=== PATIENT | male | born 1965 | race Caucasian/White ===

== ENCOUNTER → 2017-01-30 | Outpatient (CLI) | payer MEDICARE, BC ==
[2015-02-01 22:28] VITALS: BP 108/66
[~2017-01-30] MED LIST: ALEN35TA6 PO; ALEN70TA3 PO; ALEN70TA5 PO; CALC-9 PO; CALC1POW MC; CETI10TA16 PO; FLUT16SP NS; FOLI1TAB16 PO; HYDR-2762 PO; IMMU20VI IV; IMMU50VI3 IV; IOHEXOL 300 MG/ML 50 ML VIAL. ONE; METH25VI27 IJ; METO-239 PO; MILN12.5 PO; MULT-246 PO; MULT1TAB97 PO; MYCO250C44 PO; MYCO500T PO; OMEP40CA5 PO; OXYC-328 PO; OXYC1TAB7 PO; OXYC20TA34 PO; OXYC30TA64 PO; OXYC40TA21 PO; PRED-220 PO; PRED20TA PO; PREG75CA PO; TRAM50TA PO; WARF-78 PO; WARF5VIA IV; ZOLP10TA4 PO
--- NOTE | 2017-01-30 11:29 | RAD ---
Fluoroscopic evaluation of right internal jugular port 01/30/2017 Indication: Port will not aspirate Discussion: The right internal jugular port was evaluated fluoroscopically. The port, and catheter are intact. Catheter tip is at the expected position within the cavoatrial junction. The right chest was prepped and draped using maximum sterile barrier technique. The port was accessed. The port would not aspirate but easily flushed. Contrast was administered to the port catheter demonstrating presence of fibrin sheath of the port catheter tip. No other abnormalities are seen. The port was flushed with saline packed with heparin. No immediate complications were identified. Fluoro time 0.8 minutes Dose 10 Gycm2 Impression: 5 [place] sheath around the tip of the port catheter restricting aspiration.
== END | disposition home or self-care (01) ==
LOC: INTRAD 07:44
PROVIDERS: ATTEND Family Medicine
DX: T82.594A Other mechanical complication of infusion catheter, initial encounter (principal); Y84.8 Other medical procedures as the cause of abnormal reaction of the patient, or of later complication, without mention of misadventure at the time of the procedure; Y92.89 Other specified places as the place of occurrence of the external cause; Z86.718 Personal history of other venous thrombosis and embolism; K21.9 Gastro-esophageal reflux disease without esophagitis
CPT/HCPCS: 36598

== ENCOUNTER → 2017-02-04 | Outpatient (CLI) | payer MEDICARE, BC ==
[~2017-02-04] MED LIST changes: -IOHEXOL 300 MG/ML 50 ML VIAL. ONE; +LIDOCAINE 1%/EPI 1:100,000 20 ML VIAL. IJ ONE; +LIDOCAINE 1%/EPI 1:100,000 20 ML VIAL. ONE; +MIDAZOLAM HCL/PF 5 MG/5 ML VIAL. IV ONE; +MIDAZOLAM HCL/PF 5 MG/5 ML VIAL. ONE; +fentaNYL PF VIAL 250 MCG/5 ML VIAL IV ONE; +fentaNYL PF VIAL 250 MCG/5 ML VIAL ONE
[2017-02-04 07:29] LABS: BASO # 0.1 x10^3/uL (0.0-0.2); BASO % 1 % (0-3); EOS % 1 % (0-3); HEMATOCRIT 39.6 % (39.0-53.0); LYMPH # 0.6 x10^3/uL (1.0-4.8); LYMPH % 8 % (24-48); MEAN CORPUSCULAR HEMOGLOBIN 33 pg (25-35); MEAN CORPUSCULAR HGB CONC 33 g/dL (31-37); MEAN CORPUSCULAR VOLUME 100 fL (79-100); MONO % 4 % (0-9); NEUT % 86 % (31-73); PLATELET COUNT 175 x10^3/uL (140-400); RED BLOOD COUNT 3.97 x10^6/uL (4.30-5.70); RED CELL DISTRIBUTION WIDTH 16.7 % (11.5-14.5)
[2017-02-04 07:48] LABS: PROTHROMBIN TIME PATIENT 12.9 SEC (11.7-14.0)
[2017-02-04 07:52] LABS: CALCIUM 8.4 mg/dL (8.5-10.1); CREATININE 0.7 mg/dL (0.7-1.3); GFR 118.4; POTASSIUM 4.5 mmol/L (3.5-5.1)
[2017-02-04 09:20] VITALS: BP 117/71
[2017-02-04 09:31] LABS: % BASOS 1 % (0-3); % EOS 4 % (0-5)
[2017-02-04 09:33] VITALS: BP 116/77
[2017-02-04 09:33] LABS: ANISOCYTOSIS SLIGHT; PLT ESTIMATE ADEQUATE (ADEQUATE); TOXIC GRANULATION SLIGHT
[2017-02-04 09:46] VITALS: BP 125/78
[2017-02-04 10:00] VITALS: BP 107/72
[2017-02-04 10:15] VITALS: BP 92/63
--- NOTE | 2017-02-04 13:12 | RAD ---
02/04/2017 1. Removal of right internal jugular PowerPort 2. Placement of a new right internal jugular PowerPort Indication: Malfunctioning right internal jugular PowerPort Discussion: Sedation: Conscious sedation was administered for 30 minutes. The patient was monitored by a qualified independent observer throughout the time of sedation. Please refer to the medical record for exact doses of medications utilized to achieve moderate sedation. Fluoroscopy time: 0.9 utes Dose area product: 2 ycm2 The procedure was explained in its entirety to the patient or the patients designated pharmaceutical representative by a member of the treatment team, including a discussion of the risks, benefits and commonly accepted alternatives to the procedure, as well as the expected consequences of no therapy whatsoever. Discussion of the risks included, but was not limited to, those that are most frequent and those that are rare but possibly severe or life-threatening, as well as the possibility of unforeseen complications. All elements of maximal sterile barrier technique including the use of a cap, mask, sterile gown, sterile gloves, large sterile sheet, appropriate hand hygiene, and 2% chlorhexidine for cutaneous antisepsis (or acceptable alternative antiseptic per current guidelines) were followed for this procedure. Following informed consent, and a timeout procedure, the patient was prepped and draped in the usual sterile fashion. 1% lidocaine without epinephrine was administered overlying the pre-existing port reservoir. A small incision was made overlying the reservoir and the reservoir and catheter were removed intact. No overt evidence of infection was seen. Ultrasound interrogation of the right neck revealed patency and compressibility of the right internal jugular vein. A 21-gauge micropuncture was then used to gain access to this vein under ultrasound guidance. A hard copy ultrasound image was recorded. The needle was exchanged over a wire for a sheath. A catheter was tunneled from prior port pocket site in the right chest to the venotomy site in the right neck. A guidewire was advanced centrally followed by peel-away sheath. Through peel-away sheath the port catheter was advanced such that its tip was in the proximal right atrium with the patient supine. The catheter was trimmed to length and connected to the port reservoir. The port was found to flush and aspirate normally. The wound was closed in layers using 4-0 Vicryl suture. Sterile dressings were applied. Impression: Successful ultrasound and fluoroscopically guided removal of the pre-existing port, and placement of a new right internal jugular PowerPort
== END | disposition home or self-care (01) ==
LOC: INTRAD 06:53
PROVIDERS: ATTEND Family Medicine
DX: T85.618A Breakdown (mechanical) of other specified internal prosthetic devices, implants and grafts, initial encounter (principal); Y84.8 Other medical procedures as the cause of abnormal reaction of the patient, or of later complication, without mention of misadventure at the time of the procedure; Y92.89 Other specified places as the place of occurrence of the external cause; K21.9 Gastro-esophageal reflux disease without esophagitis; Z98.890 Other specified postprocedural states; Z87.39 Personal history of other diseases of the musculoskeletal system and connective tissue
CPT/HCPCS: 36415; 36561; 76937; 77001; 80048; 85007; 85610; 99152; C1751; C1892; J0690; J1644; J2250; J3010; J3490; 85025; 99153

== ENCOUNTER → 2017-04-07 | Outpatient (CLI) | payer MEDICARE, BC | END | disposition home or self-care (01) | LOC: PNCL 09:18 | DX: M54.5 Low back pain (principal); M79.662 Pain in left lower leg; M79.661 Pain in right lower leg; G47.30 Sleep apnea, unspecified; Z86.711 Personal history of pulmonary embolism; Z86.718 Personal history of other venous thrombosis and embolism; Z79.01 Long term (current) use of anticoagulants | CPT/HCPCS: G0463 ==

== ENCOUNTER 2017-09-18 10:50 | Inpatient (IN) | payer MEDICARE, BC ==
[2017-09-18 11:55] LABS: BASO # 0.1 x10^3/uL (0.0-0.2); BASO % 1 % (0-3); EOS % 0 % (0-3); HEMATOCRIT 43.4 % (39.0-53.0); HEMOGLOBIN 14.8 g/dL (13.0-17.5); LYMPH # 1.3 x10^3/uL (1.0-4.8); LYMPH % 9 % (24-48); MEAN CORPUSCULAR HEMOGLOBIN 33 pg (25-35); MEAN CORPUSCULAR HGB CONC 34 g/dL (31-37); MEAN CORPUSCULAR VOLUME 97 fL (79-100); MONO # 0.9 x10^3/uL (0.0-1.1); MONO % 7 % (0-9); NEUT # 11.8 x10^3uL (1.8-7.7); NEUT % 83 % (31-73); PLATELET COUNT 156 x10^3/uL (140-400); RED BLOOD COUNT 4.46 x10^6/uL (4.30-5.70); WHITE BLOOD COUNT 14.1 x10^3/uL (4.0-11.0)
[2017-09-18 11:59] LABS: ADD MAN DIFF? YES
[2017-09-18 12:05] LABS: ANION GAP 6 (6-14); BLOOD UREA NITROGEN 17 mg/dL (8-26); CALCIUM 8.3 mg/dL (8.5-10.1); CARBON DIOXIDE 30 mmol/L (21-32); CHLORIDE 102 mmol/L (98-107); CREATININE 0.4 mg/dL (0.7-1.3); GLUCOSE 135 mg/dL (70-99); POTASSIUM 3.8 mmol/L (3.5-5.1); SODIUM 138 mmol/L (136-145)
[2017-09-18 12:21] LABS: ALBUMIN 2.7 g/dL (3.4-5.0); ALK PHOS 81 U/L (46-116); ALT (SGPT) 221 U/L (16-63); AST (SGOT) 143 U/L (15-37); CREATINE KINASE 1653 U/L (39-308); DIRECT BILIRUBIN 0.1 mg/dL (0.0-0.2); TOTAL BILIRUBIN 0.4 mg/dL (0.2-1.0); TOTAL PROTEIN 6.2 g/dL (6.4-8.2)
[2017-09-18 12:37] LABS: % BANDS 2 % (0-9); % LYMPHS 10 % (24-48); % METAS 1 % (0-0); % MONOS 5 % (0-10); % MYELOS 1 % (0-0); % SEGS 81 % (35-66); ANISOCYTOSIS SLIGHT; PLT ESTIMATE ADEQUATE (ADEQUATE)
[2017-09-18 13:09] LABS: BILIRUBIN,URINE NEGATIVE (NEG); CLARITY,URINE CLEAR; COLOR,URINE YELLOW; GLUCOSE,URINE NEGATIVE (NEG); NITRITE,URINE NEGATIVE (NEG); PROTEIN,URINE NEGATIVE (NEG-TRACE)
[2017-09-18 13:23] LABS: BACTERIA,URINE 0 /HPF (0-FEW); RBC,URINE 0 /HPF (0-2); WBC,URINE 0 /HPF (0-4)
[2017-09-18] MEDS ORDERED: ALBUTEROL SULFATE 2.5 MG/3 ML NEBU. NEB (15:00)
[2017-09-18] MEDS ORDERED: guaiFENesin DM 200MG/20MG 10 ML SYRUP PO (15:00)
[2017-09-18] MEDS ORDERED: PIP/TAZO PER PHARMACY MC (15:00)
[2017-09-18] MEDS ORDERED: MORPHINE SULFATE 4 MG/ML DISP.SYRIN. IV (15:00)
[2017-09-18] MEDS ORDERED: ONDANSETRON PF 4 MG/2 ML VIAL. IV (15:00)
[2017-09-18] MEDS ORDERED: MORPHINE SULFATE 2 MG/ML DISP.SYRIN. IV (15:00)
[2017-09-18] MEDS ORDERED: ACETAMINOPHEN 325 MG TABLET. PO (15:00)
[2017-09-18] MEDS: oxyCODONE/APAP 10/325 1 TAB TABLET PO ×2 (16:12→20:31)
[2017-09-18] MEDS ORDERED: PROMETHAZINE 12.5 MG TABLET. PO (17:00)
[2017-09-18] MEDS ORDERED: LACTULOSE 20 GM/30 ML SOLUTION. PO (17:00)
[2017-09-18] MEDS: IV NORMAL SALINE 1000ML BAG 1,000 ML IV (17:53)
[2017-09-18] MEDS: PIPERACILLIN/TAZOBACTAM 3.375 GM in IV NORMAL SALINE 50ML 50 ML IV (17:53)
[2017-09-18] MEDS: buPROPion XL 150 MG TAB.ER.24H. PO (20:35)
[2017-09-18] MEDS ORDERED: oxyCODONE ER 40 MG TAB.ER.12H PO (21:00)
[2017-09-18] MEDS ORDERED: ENOXAPARIN 40 MG/0.4 ML SYRINGE. SQ (21:00)
[2017-09-18] MEDS ORDERED: predniSONE 5 MG TABLET PO (21:00)
[2017-09-18] MEDS: LACTOBACILLUS RHAMNOSUS GG 1 CAPSULE. PO (21:04)
[2017-09-18] MEDS: predniSONE 20 MG TABLET PO (21:05)
[2017-09-18] MEDS: CALCIUM CARB/VIT D3 500/200 TABLET. PO (21:05)
[2017-09-18] MEDS: oxyCODONE ER 40 MG TAB.ER.12H PO (21:05)
[2017-09-18] MEDS: PANTOPRAZOLE 40 MG TABLET.DR. PO (21:05)
[2017-09-18] MEDS: GABAPENTIN 100 MG CAPSULE. PO (21:06)
[2017-09-18] MEDS: CETIRIZINE HCL 10 MG TABLET. PO (21:06)
[2017-09-18] MEDS: DABIGATRAN ETEXILATE 150 MG CAPSULE. PO (21:06)
[2017-09-18] MEDS: METOPROLOL SUCC 24HR ER 25 MG TAB.ER.24H. PO (21:06)
[2017-09-18] MEDS: FOLIC ACID 1 MG TABLET. PO (21:06)
[2017-09-18] MEDS: ZOLPIDEM 5 MG TABLET. PO (22:52)
[2017-09-19] MEDS: IV NORMAL SALINE 1000ML BAG 1,000 ML IV ×4 (00:13→22:48)
[2017-09-19] MEDS: PIPERACILLIN/TAZOBACTAM 3.375 GM in IV NORMAL SALINE 50ML 50 ML IV ×6 (00:14→23:54)
[2017-09-19] MEDS: ALPRAZolam 1 MG TABLET PO (00:18)
[2017-09-19] MEDS ORDERED: oxyCODONE/APAP 10/325 1 TAB TABLET PO (00:30)
[2017-09-19] MEDS ORDERED: MAGNESIUM HYDROXIDE 2,400 MG/30 ML ORAL.SUSP. PO (01:45)
[2017-09-19 05:39] LABS: ADD MAN DIFF? NO
[2017-09-19 05:47] LABS: BASO % 0 % (0-3); EOS % 0 % (0-3); HEMATOCRIT 40.2 % (39.0-53.0); HEMOGLOBIN 13.4 g/dL (13.0-17.5); LYMPH # 0.4 x10^3/uL (1.0-4.8); LYMPH % 3 % (24-48); MEAN CORPUSCULAR HEMOGLOBIN 33 pg (25-35); MEAN CORPUSCULAR HGB CONC 33 g/dL (31-37); MEAN CORPUSCULAR VOLUME 98 fL (79-100); MONO # 0.2 x10^3/uL (0.0-1.1); MONO % 2 % (0-9); NEUT # 11.4 x10^3uL (1.8-7.7); NEUT % 95 % (31-73); PLATELET COUNT 142 x10^3/uL (140-400)
[2017-09-19 06:02] LABS: ANION GAP 9 (6-14); BLOOD UREA NITROGEN 18 mg/dL (8-26); CALCIUM 7.8 mg/dL (8.5-10.1); CARBON DIOXIDE 27 mmol/L (21-32); CHLORIDE 105 mmol/L (98-107); CREATININE 0.4 mg/dL (0.7-1.3); GLUCOSE 210 mg/dL (70-99); POTASSIUM 4.4 mmol/L (3.5-5.1); SODIUM 141 mmol/L (136-145)
[2017-09-19] MEDS: oxyCODONE ER 40 MG TAB.ER.12H PO ×3 (06:03→21:06)
[2017-09-19] MEDS: DABIGATRAN ETEXILATE 150 MG CAPSULE. PO ×2 (07:40→21:05)
[2017-09-19] MEDS: GABAPENTIN 100 MG CAPSULE. PO ×3 (07:40→21:05)
[2017-09-19] MEDS: LACTOBACILLUS RHAMNOSUS GG 1 CAPSULE. PO ×2 (07:43→21:05)
[2017-09-19] MEDS: ALPRAZolam 0.5 MG TABLET PO (07:52)
[2017-09-19] MEDS ORDERED: NON FORMULARY ITEM (Omeprazole Magnesium (Prilosec Otc) 40 MG) PO (09:00)
[2017-09-19] MEDS ORDERED: predniSONE 10 MG TABLET PO (09:00)
[2017-09-19 09:20] LABS: CREATINE KINASE 1810 U/L (39-308)
[2017-09-19] MEDS ORDERED: MORPHINE SULFATE 2 MG/ML DISP.SYRIN. IV (13:00)
[2017-09-19] MEDS ORDERED: traMADol 50 MG TABLET PO (13:00)
[2017-09-19] MEDS ORDERED: hydrALAZINE 20 MG/ML VIAL. IVP (13:00)
[2017-09-19] MEDS ORDERED: DEXTROSE 50% 25 GM / 50ML DISP.SYRIN. IV (13:00)
[2017-09-19] MEDS ORDERED: ONDANSETRON PF 4 MG/2 ML VIAL. IV (13:00)
[2017-09-19] MEDS ORDERED: DOCUSATE SODIUM 100 MG CAPSULE. PO (13:00)
[2017-09-19] MEDS ORDERED: ACETAMINOPHEN 325 MG TABLET. PO (13:00)
[2017-09-19] MEDS: ANTI-COAG MONITOR BY PHARMACY. MC (15:21)
[2017-09-19 16:29] LABS: POC GLUCOSE 144 mg/dL (70-99)
[2017-09-19] MEDS: INSULIN LISPRO 300 UNITS/3 ML INSULN.PEN. SQ (16:53)
[2017-09-19 18:34] LABS: SEDIMENTATION RATE 15 (0-15)
[2017-09-19 20:16] LABS: POC GLUCOSE 156 mg/dL (70-99)
[2017-09-19] MEDS: buPROPion XL 150 MG TAB.ER.24H. PO (21:00)
[2017-09-19] MEDS: CETIRIZINE HCL 10 MG TABLET. PO (21:05)
[2017-09-19] MEDS: FOLIC ACID 1 MG TABLET. PO (21:05)
[2017-09-19] MEDS: predniSONE 20 MG TABLET PO (21:05)
[2017-09-19] MEDS: CALCIUM CARB/VIT D3 500/200 TABLET. PO (21:05)
[2017-09-19] MEDS: PANTOPRAZOLE 40 MG TABLET.DR. PO (21:05)
[2017-09-19] MEDS: METOPROLOL SUCC 24HR ER 25 MG TAB.ER.24H. PO (21:06)
[2017-09-19] MEDS: ZOLPIDEM 5 MG TABLET. PO (21:58)
[2017-09-20] MEDS: IV NORMAL SALINE 1000ML BAG 1,000 ML IV ×3 (02:35→20:40)
[2017-09-20] MEDS: PIPERACILLIN/TAZOBACTAM 3.375 GM in IV NORMAL SALINE 50ML 50 ML IV ×4 (05:31→23:09)
[2017-09-20] MEDS: oxyCODONE ER 40 MG TAB.ER.12H PO ×3 (05:31→20:41)
[2017-09-20 05:40] LABS: ADD MAN DIFF? NO
[2017-09-20 05:51] LABS: BASO % 0 % (0-3); EOS % 0 % (0-3); HEMATOCRIT 39.2 % (39.0-53.0); LYMPH # 0.4 x10^3/uL (1.0-4.8); LYMPH % 4 % (24-48); MEAN CORPUSCULAR HEMOGLOBIN 33 pg (25-35); MEAN CORPUSCULAR HGB CONC 33 g/dL (31-37); MEAN CORPUSCULAR VOLUME 99 fL (79-100); MONO # 0.2 x10^3/uL (0.0-1.1); MONO % 2 % (0-9); NEUT % 94 % (31-73); PLATELET COUNT 125 x10^3/uL (140-400); RED BLOOD COUNT 3.98 x10^6/uL (4.30-5.70); RED CELL DISTRIBUTION WIDTH 16.7 % (11.5-14.5); WHITE BLOOD COUNT 8.6 x10^3/uL (4.0-11.0)
[2017-09-20 06:00] LABS: ANION GAP 4 (6-14); BLOOD UREA NITROGEN 15 mg/dL (8-26); CALCIUM 7.9 mg/dL (8.5-10.1); CARBON DIOXIDE 28 mmol/L (21-32); CHLORIDE 108 mmol/L (98-107); CREATININE 0.5 mg/dL (0.7-1.3); GFR 173.9; GLUCOSE 176 mg/dL (70-99); POTASSIUM 4.4 mmol/L (3.5-5.1); SODIUM 140 mmol/L (136-145)
[2017-09-20] MEDS: INSULIN LISPRO 300 UNITS/3 ML INSULN.PEN. SQ ×3 (08:00→16:56)
[2017-09-20] MEDS: DABIGATRAN ETEXILATE 150 MG CAPSULE. PO ×2 (08:32→20:40)
[2017-09-20] MEDS: GABAPENTIN 100 MG CAPSULE. PO ×3 (08:32→20:40)
[2017-09-20] MEDS: LACTOBACILLUS RHAMNOSUS GG 1 CAPSULE. PO ×2 (08:32→20:40)
[2017-09-20] MEDS: ALPRAZolam 0.5 MG TABLET PO (09:00)
[2017-09-20 09:15] LABS: CKMB INDEX 10.6 % (0-4); CKMB MASS 186.5 ng/mL (0.0-3.6); CREATINE KINASE 1767 U/L (39-308)
[2017-09-20] MEDS: ANTI-COAG MONITOR BY PHARMACY. MC (17:17)
[2017-09-20] MEDS: CALCIUM CARB/VIT D3 500/200 TABLET. PO (20:40)
[2017-09-20] MEDS: PANTOPRAZOLE 40 MG TABLET.DR. PO (20:40)
[2017-09-20] MEDS: CETIRIZINE HCL 10 MG TABLET. PO (20:40)
[2017-09-20] MEDS: predniSONE 20 MG TABLET PO (20:40)
[2017-09-20] MEDS: FOLIC ACID 1 MG TABLET. PO (20:41)
[2017-09-20] MEDS: METOPROLOL SUCC 24HR ER 25 MG TAB.ER.24H. PO (20:41)
[2017-09-20] MEDS: ZOLPIDEM 5 MG TABLET. PO (22:06)
[2017-09-21] MEDS: oxyCODONE ER 40 MG TAB.ER.12H PO ×3 (05:07→21:11)
[2017-09-21] MEDS: PIPERACILLIN/TAZOBACTAM 3.375 GM in IV NORMAL SALINE 50ML 50 ML IV ×3 (05:07→18:26)
[2017-09-21] MEDS: IV NORMAL SALINE 1000ML BAG 1,000 ML IV ×2 (05:07→15:00)
[2017-09-21 05:16] LABS: ADD MAN DIFF? NO
[2017-09-21 05:22] LABS: POC GLUCOSE 117 mg/dL (70-99)
[2017-09-21 05:27] LABS: ANION GAP 4 (6-14); BLOOD UREA NITROGEN 14 mg/dL (8-26); CALCIUM 7.8 mg/dL (8.5-10.1); CARBON DIOXIDE 28 mmol/L (21-32); CHLORIDE 108 mmol/L (98-107); CREATININE 0.4 mg/dL (0.7-1.3); GLUCOSE 173 mg/dL (70-99); POTASSIUM 4.4 mmol/L (3.5-5.1); SODIUM 140 mmol/L (136-145)
[2017-09-21 05:36] LABS: BASO % 0 % (0-3); EOS % 0 % (0-3); HEMATOCRIT 38.2 % (39.0-53.0); HEMOGLOBIN 12.8 g/dL (13.0-17.5); LYMPH # 0.4 x10^3/uL (1.0-4.8); LYMPH % 5 % (24-48); MEAN CORPUSCULAR HEMOGLOBIN 33 pg (25-35); MEAN CORPUSCULAR HGB CONC 34 g/dL (31-37); MEAN CORPUSCULAR VOLUME 98 fL (79-100); MONO # 0.2 x10^3/uL (0.0-1.1); MONO % 2 % (0-9); NEUT # 7.3 x10^3uL (1.8-7.7); NEUT % 93 % (31-73); PLATELET COUNT 132 x10^3/uL (140-400); RED BLOOD COUNT 3.88 x10^6/uL (4.30-5.70); RED CELL DISTRIBUTION WIDTH 16.6 % (11.5-14.5); WHITE BLOOD COUNT 7.9 x10^3/uL (4.0-11.0)
[2017-09-21 05:50] LABS: CKMB MASS 124.8 ng/mL (0.0-3.6)
[2017-09-21 05:54] LABS: CKMB INDEX 10.2 % (0-4); CREATINE KINASE 1229 U/L (39-308)
[2017-09-21] MEDS: INSULIN LISPRO 300 UNITS/3 ML INSULN.PEN. SQ ×3 (08:00→17:00)
[2017-09-21] MEDS: ALPRAZolam 0.5 MG TABLET PO (09:00)
[2017-09-21] MEDS: DABIGATRAN ETEXILATE 150 MG CAPSULE. PO ×2 (09:14→21:08)
[2017-09-21] MEDS: GABAPENTIN 100 MG CAPSULE. PO ×3 (09:14→21:09)
[2017-09-21] MEDS: LACTOBACILLUS RHAMNOSUS GG 1 CAPSULE. PO ×2 (09:14→21:08)
[2017-09-21] MEDS: PANTOPRAZOLE 40 MG TABLET.DR. PO (21:09)
[2017-09-21] MEDS: CALCIUM CARB/VIT D3 500/200 TABLET. PO (21:09)
[2017-09-21] MEDS: CETIRIZINE HCL 10 MG TABLET. PO (21:09)
[2017-09-21] MEDS: METOPROLOL SUCC 24HR ER 25 MG TAB.ER.24H. PO (21:10)
[2017-09-21] MEDS: predniSONE 20 MG TABLET PO (21:11)
[2017-09-21] MEDS: FOLIC ACID 1 MG TABLET. PO (21:17)
[2017-09-21] MEDS: ZOLPIDEM 5 MG TABLET. PO (21:43)
[2017-09-22] MEDS: PIPERACILLIN/TAZOBACTAM 3.375 GM in IV NORMAL SALINE 50ML 50 ML IV ×5 (00:17→23:27)
[2017-09-22] MEDS: IV NORMAL SALINE 1000ML BAG 1,000 ML IV (00:17)
[2017-09-22] MEDS: oxyCODONE ER 40 MG TAB.ER.12H PO ×3 (05:51→21:40)
[2017-09-22] MEDS: INSULIN LISPRO 300 UNITS/3 ML INSULN.PEN. SQ ×3 (08:00→17:00)
[2017-09-22] MEDS: DABIGATRAN ETEXILATE 150 MG CAPSULE. PO ×2 (08:41→20:38)
[2017-09-22] MEDS: GABAPENTIN 100 MG CAPSULE. PO ×3 (08:41→21:41)
[2017-09-22] MEDS: LACTOBACILLUS RHAMNOSUS GG 1 CAPSULE. PO ×2 (08:44→20:38)
[2017-09-22] MEDS ORDERED: LOPERAMIDE 2 MG CAPSULE PO (08:45)
[2017-09-22] MEDS: ALPRAZolam 0.5 MG TABLET PO (09:00)
[2017-09-22 09:54] LABS: CREATINE KINASE 2475 U/L (39-308)
[2017-09-22] MEDS: diphenhydrAMINE HCL 25 MG CAPSULE PO (14:44)
[2017-09-22] MEDS: IMMUNE GLOBULIN GAMMA 10% IV (14:45)
[2017-09-22] MEDS: CALCIUM CARB/VIT D3 500/200 TABLET. PO (20:38)
[2017-09-22] MEDS: FOLIC ACID 1 MG TABLET. PO (20:38)
[2017-09-22] MEDS: CETIRIZINE HCL 10 MG TABLET. PO (20:38)
[2017-09-22] MEDS: PANTOPRAZOLE 40 MG TABLET.DR. PO (20:39)
[2017-09-22] MEDS: predniSONE 20 MG TABLET PO (20:39)
[2017-09-22] MEDS: ALPRAZolam 1 MG TABLET PO (20:41)
[2017-09-22] MEDS: METOPROLOL SUCC 24HR ER 25 MG TAB.ER.24H. PO (21:39)
[2017-09-23] MEDS: PIPERACILLIN/TAZOBACTAM 3.375 GM in IV NORMAL SALINE 50ML 50 ML IV (05:55)
[2017-09-23] MEDS: oxyCODONE ER 40 MG TAB.ER.12H PO ×2 (05:56→14:28)
[2017-09-23] MEDS: INSULIN LISPRO 300 UNITS/3 ML INSULN.PEN. SQ ×2 (08:00→12:00)
[2017-09-23] MEDS: LACTOBACILLUS RHAMNOSUS GG 1 CAPSULE. PO (08:47)
[2017-09-23] MEDS: GABAPENTIN 100 MG CAPSULE. PO ×2 (08:47→14:28)
[2017-09-23] MEDS: DABIGATRAN ETEXILATE 150 MG CAPSULE. PO (08:47)
[2017-09-23] MEDS: ALPRAZolam 0.5 MG TABLET PO (09:00)
[2017-09-23] MEDS: FUROSEMIDE 20 MG/2 ML VIAL. IVP (09:54)
[2017-09-23 11:11] LABS: CREATINE KINASE 2039 U/L (39-308)
[2017-09-23] MEDS: ANTI-COAG MONITOR BY PHARMACY. MC (13:41)
[2017-09-23] MEDS: HEPARIN PF 500 UNIT/5 ML DISP.SYRIN. IV (15:15)
[2017-09-23] MEDS ORDERED: CEFPODOXIME PROXETIL 100 MG TABLET. PO (21:00)
== END 2017-09-23 16:00 | DRG 177 ==
LOC: ER 10:50 → 5 NORTH 13:10
DX: J69.0 Pneumonitis due to inhalation of food and vomit (principal); E43 Unspecified severe protein-calorie malnutrition; D68.59 Other primary thrombophilia; M33.20 Polymyositis, organ involvement unspecified; J15.9 Unspecified bacterial pneumonia; Z79.01 Long term (current) use of anticoagulants; Z79.52 Long term (current) use of systemic steroids; Z79.899 Other long term (current) drug therapy; Z86.711 Personal history of pulmonary embolism; Z86.718 Personal history of other venous thrombosis and embolism; Z74.01 Bed confinement status; G89.29 Other chronic pain; G72.9 Myopathy, unspecified; Z88.8 Allergy status to other drugs, medicaments and biological substances; Z68.29 Body mass index [BMI] 29.0-29.9, adult
CPT/HCPCS: 36415; 71045; 71250; 80048; 80076; 81001; 82550; 82553; 82962; 85007; 85025; 85651; 87040; 87070; 87205; 94760; 96365; 96375; 97110-GO; 97110-GP; 97163-GP; 97166-GO; 97530-GO; 97530-GP; 99285; 99285-25; J0690; J1459; J1815; J1956; J2543; J7030; J7512; Q0163